=== PATIENT | male | born 1945 | race Caucasian/White ===

== ENCOUNTER → 2017-12-31 | Outpatient (CLI) | payer MEDICARE, OTHER ==
[~2017-12-31] MED LIST: ASPI-867 PO; ATOR20TA PO; BARIUM SULFATE 450ML ORAL SUSP ONE; CILO100T PO; IOHEXOL-300 100 ML BOTTLE ONE; NEBI10TA2 PO
== END | disposition home or self-care (01) ==
LOC: NM 08:37
PROVIDERS: ATTEND Urology
DX: N40.0 Benign prostatic hyperplasia without lower urinary tract symptoms (principal); C61 Malignant neoplasm of prostate; K80.20 Calculus of gallbladder without cholecystitis without obstruction; I51.7 Cardiomegaly; M47.896 Other spondylosis, lumbar region; R97.20 Elevated prostate specific antigen [PSA]
CPT/HCPCS: 74178; 78306; A9503; C1893; Q9967

== ENCOUNTER → 2018-03-02 | Outpatient (CLI) | payer MEDICARE, OTHER ==
[~2018-03-02] MED LIST changes: -BARIUM SULFATE 450ML ORAL SUSP ONE; -IOHEXOL-300 100 ML BOTTLE ONE
== END | disposition home or self-care (01) ==
LOC: RAD 12:21
PROVIDERS: ATTEND Specialist
DX: Z01.818 Encounter for other preprocedural examination (principal); R07.89 Other chest pain; I51.7 Cardiomegaly
CPT/HCPCS: 71046

== ENCOUNTER 2020-03-01 13:07 | Inpatient (IN) | payer MEDICARE, OTHER ==
[~2020-03-01] VITALS: Ht 167.6 cm; Wt 79.4 kg
[~2020-03-01 13:07] MED LIST changes: -ASPI-867 PO; +ASPI325T85 PO
[2020-03-01] MEDS ORDERED: ASPIRIN 81MG TABLET PO SCH (15:00)
[2020-03-01 15:05] LABS: CHLORIDE 104 mEq/L (98-107)
[2020-03-01 15:06] LABS: BASOPHILS % 1.4 % (0.0-2.0); EOSINOPHILS % 1.9 % (0.0-5.0); HEMATOCRIT. 21.9 % (42.0-52.0); LYMPHOCYTES % 21.1 % (20.0-50.0); MEAN CORPUSCULAR HEMOGLOBIN 18.6 pg (28.0-32.0); MEAN CORPUSCULAR VOLUME 62.4 fL (80.0-94.0); MEAN PLATELET VOLUME 8.6 fl (7.4-10.4); MONOCYTES % 9.4 % (2.0-8.0); NEUTROPHILS % 66.2 % (40.0-76.0); PLATELET 169 x1000/uL (130-400); RED BLOOD CELL COUNT 3.51 mill/uL (4.7-6.1); RED CELL DISTRIBUTION WIDTH 19.2 % (11.6-14.6)
[2020-03-01 15:10] LABS: HEMOGLOBIN. 6.5 g/dL (14.0-18.0)
[2020-03-01 15:12] LABS: INR 1.1; PROTHROMBIN TIME 11.4 sec (9.6-11.0)
[2020-03-01] MEDS: FUROSEMIDE 40MG/4ML VIAL IVP SCH (15:44)
[2020-03-01 15:51] LABS: PLATELET ESTIMATE NORMAL
[2020-03-01] MEDS ORDERED: CEFTRIAXONE 2 G PREMIX 50 ML IV ONE (16:00)
[2020-03-01] MEDS ORDERED: AZITHROMYCIN 500 MG in DEXT 5% WATER 250 ML IV ONE (16:00)
[2020-03-01] MEDS: CEFTRIAXONE 1 G PREMIX 50 ML IV SCH (17:15)
[2020-03-01] MEDS ORDERED: ACETAMINOPHEN 325MG TABLET PO PRN (17:15)
[2020-03-01] MEDS ORDERED: BENZONATATE 100MG CAPSULE PO PRN (17:30)
[2020-03-01 17:50] LABS: TOTAL IRON BINDING CAPACITY 386 ug/dL (250-450)
[2020-03-01 18:15] VITALS: BP 148/54
[2020-03-01 18:30] VITALS: BP 155/55
[2020-03-01 23:30] VITALS: BP 141/60
[2020-03-02] VITALS: BP 102/51
[2020-03-02] MEDS: ATORVASTATIN CALCIUM 20MG TABLET PO SCH ×2 (03:31→20:04)
[2020-03-02 04:00] VITALS: BP 135/50
[2020-03-02 07:35] LABS: BASOPHILS % 1.3 % (0.0-2.0); HEMATOCRIT. 23.3 % (42.0-52.0); HEMOGLOBIN. 7.2 g/dL (14.0-18.0); LYMPHOCYTES % 16.4 % (20.0-50.0); MEAN CORPUSCULAR HEMOGLOBIN 20.2 pg (28.0-32.0); MEAN CORPUSCULAR VOLUME 65.5 fL (80.0-94.0); MEAN PLATELET VOLUME 8.3 fl (7.4-10.4); MONOCYTES % 8.6 % (2.0-8.0); NEUTROPHILS % 71.7 % (40.0-76.0); PLATELET 158 x1000/uL (130-400); RED BLOOD CELL COUNT 3.55 mill/uL (4.7-6.1); RED CELL DISTRIBUTION WIDTH 22.8 % (11.6-14.6)
[2020-03-02 07:41] LABS: CHLORIDE 105 mEq/L (98-107)
[2020-03-02 08:00] VITALS: BP 151/64
[2020-03-02] MEDS: FUROSEMIDE 40MG/4ML VIAL IVP SCH (09:06)
[2020-03-02] MEDS: GUAIFENESIN 600MG ER TABLET PO SCH ×2 (09:06→20:04)
[2020-03-02] MEDS: AMLODIPINE 2.5MG TABLET PO SCH ×2 (09:06→20:15)
[2020-03-02] MEDS: AZITHROMYCIN 500 MG TABLET PO SCH (09:06)
[2020-03-02 12:00] VITALS: BP 136/66
[2020-03-02] MEDS: ALBUTEROL 6.7GM HFA INHALER ORI SCH ×2 (12:00→18:10)
[2020-03-02] MEDS: DOCUSATE SODIUM 100MG CAPSULE PO SCH ×2 (12:21→18:09)
[2020-03-02 16:00] VITALS: BP 124/59
[2020-03-02] MEDS: CEFTRIAXONE 1 G PREMIX 50 ML IV SCH (18:09)
[2020-03-02] MEDS: FERROUS SULFATE 325MG TABLET PO SCH ×2 (18:09→18:12)
[2020-03-02 20:00] VITALS: BP 131/53
[2020-03-03] VITALS: BP 131/54
[2020-03-03] MEDS: ALBUTEROL 6.7GM HFA INHALER ORI SCH ×3 (00:22→13:17)
[2020-03-03 04:00] VITALS: BP 138/46
[2020-03-03 06:39] LABS: CHLORIDE 104 mEq/L (98-107)
[2020-03-03 06:45] LABS: BASOPHILS % 1.3 % (0.0-2.0); EOSINOPHILS % 2.7 % (0.0-5.0); HEMATOCRIT. 24.2 % (42.0-52.0); HEMOGLOBIN. 7.3 g/dL (14.0-18.0); LYMPHOCYTES % 18.8 % (20.0-50.0); MEAN CORPUSCULAR HEMOGLOBIN 19.8 pg (28.0-32.0); MEAN CORPUSCULAR VOLUME 65.6 fL (80.0-94.0); MEAN PLATELET VOLUME 8.4 fl (7.4-10.4); MONOCYTES % 9.7 % (2.0-8.0); NEUTROPHILS % 67.5 % (40.0-76.0); PLATELET 162 x1000/uL (130-400); RED BLOOD CELL COUNT 3.69 mill/uL (4.7-6.1); RED CELL DISTRIBUTION WIDTH 22.4 % (11.6-14.6)
[2020-03-03] MEDS: FERROUS SULFATE 325MG TABLET PO SCH ×3 (07:01→16:40)
[2020-03-03 08:00] VITALS: BP 144/59
[2020-03-03] MEDS: FUROSEMIDE 40MG/4ML VIAL IVP SCH (09:47)
[2020-03-03] MEDS: GUAIFENESIN 600MG ER TABLET PO SCH ×2 (09:47→21:59)
[2020-03-03] MEDS: AZITHROMYCIN 500 MG TABLET PO SCH (09:48)
[2020-03-03] MEDS: AMLODIPINE 2.5MG TABLET PO SCH ×2 (09:48→21:59)
[2020-03-03] MEDS: DOCUSATE SODIUM 100MG CAPSULE PO SCH ×2 (09:48→16:35)
[2020-03-03 12:00] VITALS: BP 132/55
[2020-03-03 13:22] LABS: PLATELET ESTIMATE NORMAL
[2020-03-03] MEDS ORDERED: IPRATROPIUM BROMIDE (0.02%) 0.5MG/2.5ML NEB HHN PRN (14:45)
[2020-03-03] MEDS ORDERED: DILTIAZEM HCL 5MG/ML 5ML VIAL IV NR (14:45)
[2020-03-03] MEDS ORDERED: DILTIAZEM HCL 125 MG in DEXT 5% WATER 100 ML IV PRN (14:45)
[2020-03-03 16:00] VITALS: BP 135/56
[2020-03-03] MEDS: CEFTRIAXONE 1 G PREMIX 50 ML IV SCH (16:41)
[2020-03-03] MEDS ORDERED: IPRATROPIUM/ALBUTEROL 0.5-3(2.5)MG/3ML NEB HHN SCH (18:00)
[2020-03-03 20:00] VITALS: BP 135/50
[2020-03-03] MEDS: IPRATROPIUM BROMIDE (0.02%) 0.5MG/2.5ML NEB HHN SCH (21:36)
[2020-03-03] MEDS: BUDESONIDE 0.5MG/2ML NEB HHN SCH (21:36)
[2020-03-03] MEDS: ATORVASTATIN CALCIUM 20MG TABLET PO SCH (21:59)
[2020-03-04] VITALS: BP 130/50
[2020-03-04] MEDS: IPRATROPIUM BROMIDE (0.02%) 0.5MG/2.5ML NEB HHN SCH ×4 (01:47→20:34)
[2020-03-04 04:00] VITALS: BP 126/52
[2020-03-04] MEDS: FERROUS SULFATE 325MG TABLET PO SCH ×3 (06:23→16:26)
[2020-03-04 08:00] VITALS: BP 136/47
[2020-03-04 08:03] LABS: CHLORIDE 104 mEq/L (98-107)
[2020-03-04 08:06] LABS: BASOPHILS % 1.5 % (0.0-2.0); HEMATOCRIT. 25.8 % (42.0-52.0); HEMOGLOBIN. 7.8 g/dL (14.0-18.0); LYMPHOCYTES % 18.8 % (20.0-50.0); MEAN CORPUSCULAR HEMOGLOBIN 19.9 pg (28.0-32.0); MEAN CORPUSCULAR VOLUME 65.9 fL (80.0-94.0); MEAN PLATELET VOLUME 8.5 fl (7.4-10.4); MONOCYTES % 6.8 % (2.0-8.0); NEUTROPHILS % 69.9 % (40.0-76.0); PLATELET 178 x1000/uL (130-400); RED BLOOD CELL COUNT 3.91 mill/uL (4.7-6.1); RED CELL DISTRIBUTION WIDTH 22.7 % (11.6-14.6)
[2020-03-04] MEDS: DOCUSATE SODIUM 100MG CAPSULE PO SCH ×3 (08:45→16:33)
[2020-03-04] MEDS: AZITHROMYCIN 500 MG TABLET PO SCH (08:45)
[2020-03-04] MEDS: AMLODIPINE 2.5MG TABLET PO SCH ×2 (08:45→21:00)
[2020-03-04] MEDS: FUROSEMIDE 40MG/4ML VIAL IVP SCH (08:46)
[2020-03-04] MEDS: BUDESONIDE 0.5MG/2ML NEB HHN SCH ×2 (09:13→20:34)
[2020-03-04] MEDS: GUAIFENESIN 600MG ER TABLET PO SCH ×2 (10:37→21:00)
[2020-03-04 12:00] VITALS: BP 119/57
[2020-03-04 16:00] VITALS: BP 127/60
[2020-03-04] MEDS: CEFTRIAXONE 1 G PREMIX 50 ML IV SCH (16:26)
[2020-03-04 20:00] VITALS: BP 140/57
[2020-03-04] MEDS: ATORVASTATIN CALCIUM 20MG TABLET PO SCH (21:00)
[2020-03-05] VITALS: BP 134/49
[2020-03-05] MEDS: IPRATROPIUM BROMIDE (0.02%) 0.5MG/2.5ML NEB HHN SCH ×2 (02:18→09:14)
[2020-03-05 04:00] VITALS: BP 95/56
[2020-03-05 06:45] LABS: CHLORIDE 103 mEq/L (98-107)
[2020-03-05 06:47] LABS: BASOPHILS % 1.2 % (0.0-2.0); EOSINOPHILS % 3.7 % (0.0-5.0); HEMATOCRIT. 24.4 % (42.0-52.0); HEMOGLOBIN. 7.4 g/dL (14.0-18.0); LYMPHOCYTES % 17.9 % (20.0-50.0); MEAN CORPUSCULAR HEMOGLOBIN 20.1 pg (28.0-32.0); MEAN CORPUSCULAR VOLUME 66.3 fL (80.0-94.0); MEAN PLATELET VOLUME 8.4 fl (7.4-10.4); MONOCYTES % 7.1 % (2.0-8.0); NEUTROPHILS % 70.1 % (40.0-76.0); PLATELET 168 x1000/uL (130-400); RED BLOOD CELL COUNT 3.68 mill/uL (4.7-6.1); RED CELL DISTRIBUTION WIDTH 23.7 % (11.6-14.6)
[2020-03-05] MEDS: FERROUS SULFATE 325MG TABLET PO SCH ×2 (06:47→13:40)
[2020-03-05 08:00] VITALS: BP 124/51
[2020-03-05] MEDS: DOCUSATE SODIUM 100MG CAPSULE PO SCH (09:00)
[2020-03-05] MEDS: AMLODIPINE 2.5MG TABLET PO SCH (09:06)
[2020-03-05] MEDS: AZITHROMYCIN 500 MG TABLET PO SCH (09:06)
[2020-03-05] MEDS: GUAIFENESIN 600MG ER TABLET PO SCH (09:06)
[2020-03-05] MEDS: FUROSEMIDE 40MG/4ML VIAL IVP SCH (09:06)
[2020-03-05] MEDS: BUDESONIDE 0.5MG/2ML NEB HHN SCH (09:14)
[2020-03-05 12:00] VITALS: BP 124/50
[2020-03-05 14:34] VITALS: BP 124/50
== END 2020-03-05 16:05 | disposition home health service (06) | DRG 871 ==
LOC: ER 13:07 → 7WST 15:29 → EDBEDREQ 15:33 → EDBEDREQTM 15:33 → ENRESERV 20:43 → 7WST 03-02 00:51 → 5WST 03-02 22:59
PROVIDERS: ADMIT Specialist; ATTEND Specialist
PROC: 30233N1 Transfusion of Nonautologous Red Blood Cells into Peripheral Vein, Percutaneous Approach (ICD-10-PCS; principal; 2020-03-01)
DX: A41.89 Other specified sepsis (principal); J18.9 Pneumonia, unspecified organism; J96.01 Acute respiratory failure with hypoxia; J98.51 Mediastinitis; D68.59 Other primary thrombophilia; E44.1 Mild protein-calorie malnutrition; D50.9 Iron deficiency anemia, unspecified; B19.20 Unspecified viral hepatitis C without hepatic coma; E78.5 Hyperlipidemia, unspecified; F17.210 Nicotine dependence, cigarettes, uncomplicated; I11.0 Hypertensive heart disease with heart failure; K74.60 Unspecified cirrhosis of liver; I49.1 Atrial premature depolarization; I25.10 Atherosclerotic heart disease of native coronary artery without angina pectoris; I50.9 Heart failure, unspecified; I73.9 Peripheral vascular disease, unspecified; J45.909 Unspecified asthma, uncomplicated; D72.810 Lymphocytopenia; Z20.828 Contact with and (suspected) exposure to other viral communicable diseases; I49.3 Ventricular premature depolarization; I48.91 Unspecified atrial fibrillation; R26.9 Unspecified abnormalities of gait and mobility; B34.9 Viral infection, unspecified; K80.20 Calculus of gallbladder without cholecystitis without obstruction; Z86.73 Personal history of transient ischemic attack (TIA), and cerebral infarction without residual deficits; Z90.79 Acquired absence of other genital organ(s); Z85.46 Personal history of malignant neoplasm of prostate; Z82.49 Family history of ischemic heart disease and other diseases of the circulatory system; I25.2 Old myocardial infarction; Z68.28 Body mass index [BMI] 28.0-28.9, adult; Z79.82 Long term (current) use of aspirin; Z79.899 Other long term (current) drug therapy
CPT/HCPCS: 36415; 71045; 80048; 80053; 80061; 82270; 82728; 83540; 83550; 83735; 83880; 84145; 84443; 84484; 85025; 86140; 86850; 86900; 86920; 93005; 93306; 94640; 97116; 97162; 97166; 99291; J0456; J0696; J1940; J3490; J7060; J7626; P9016; U0003-CS